=== PATIENT | female | born 1985 | race Caucasian/White ===

== ENCOUNTER 2023-01-27 17:37 | Emergency (ER) | payer SELFPAY ==
[2023-01-27 17:40] VITALS: BP 137/72; PULSE 90; RESP 15; TEMP 36.7; O2SAT 100; BMI 21.0
--- NOTE | 2023-01-27 17:42 | DI.RAD.S_ITS ---
PROCEDURE: XR CHEST 1V INDICATIONS: chest pain TECHNIQUE: One view of the chest was acquired. COMPARISON: None. FINDINGS: Surgical changes and devices: None. Lungs and pleura: Lungs are clear. No pleural effusions or pneumothorax. Mediastinum: Mediastinal contours appear normal. Heart size is normal. Bones and chest wall: No suspicious bony lesions. Overlying soft tissues appear unremarkable. IMPRESSION: No acute process. Dictated by: Gloria Huffman M.D. on 01/27/2023 at 17:57 Approved by: Gloria Huffman M.D. on 01/27/2023 at 17:57
[2023-01-27 17:50] VITALS: O2SAT 99
[2023-01-27 17:51] VITALS: BP 138/82; PULSE 87; O2SAT 99
[2023-01-27] MEDS: ASPIRIN 81 MG CHEW TAB 324 MG PO (17:55)
[2023-01-27 17:56] LABS: Add Manual Diff / Slide Review NO; Basophils Absolute Auto 0 /uL (0-100); Basophils Percent Auto 0.4 % (0-2); Eosinophils Absolute Auto 100 /uL (0-450); Eosinophils Percent Auto 0.8 % (2-4); Hematocrit 35.9 % (36-46); Hemoglobin 12.1 g/dL (12.0-16.0); Lymphocytes Absolute Auto 1700 /uL (1100-4500); Lymphocytes Percent Auto 22.6 % (25-40); Mean Corpuscular HGB Conc 33.9 % (30-36); Mean Corpuscular Volume 88.7 fL (80-100); Monocytes Absolute Auto 600 /uL (0-900); Monocytes Percent Auto 7.1 % (3-14); Neutrophils Absolute Auto 5300 /uL (1500-7000); Neutrophils Percent Auto 69.1 % (50-75); Platelet Count 391 X10^3/uL (150-400); Red Blood Cell Count 4.04 X10^6/uL (4.0-5.2); Red Cell Distribution Width 13.6 % (11.6-14.8); White Blood Cell Count 7.7 X10^3/uL (4.5-11.0)
[2023-01-27 18:00] VITALS: PULSE 67; RESP 15; O2SAT 98
[2023-01-27 18:03] LABS: Prothrombin Time 11.7 SECONDS (10.1-12.7)
[2023-01-27 18:06] LABS: PTT Partial Thromboplastin Tim 31 SECONDS (26-36)
[2023-01-27 18:23] LABS: Alanine Aminotransferase 26 IU/L (<35); Albumin 4.6 g/dL (3.5-5.0); Albumin Globulin Ratio 1.4 (1.0-2.8); Alkaline Phosphatase 52 U/L (38-126); Aspartate Aminotransferase 30 IU/L (14-36); BUN Creatinine Ratio 18.6 (6-22); Bilirubin Total 0.3 mg/dL (0.2-1.3); Blood Urea Nitrogen 16 mg/dL (7-17); Calcium 9.4 mg/dL (8.4-10.2); Carbon Dioxide 28 mmol/L (22-32); Chloride 102 mmol/L (98-107); Creatine Kinase 149 U/L (30-135); Estimated Glomerular Filt Rate > 60 mL/min (>60); Globulin 3.4 g/dL (1.7-4.1); Glucose 86 mg/dL (70-100); HEMOLYSIS < 15 (0-50); Lipase 183 U/L (23-300); Potassium 3.8 mmol/L (3.4-5.1); Sodium 139 mmol/L (137-145)
[2023-01-27 18:30] VITALS: PULSE 64; RESP 13; O2SAT 98
[2023-01-27 18:34] LABS: Troponin I < 0.012 ng/mL (0.01-0.034)
--- NOTE | 2023-01-27 18:49 | ED_ITS ---
HPI - Chest Pain General Chief Complaint: Chest Pain Stated Complaint: chest pain Time Seen by Provider: 01/27/23 18:01 Source: patient Mode of arrival: Ambulatory Limitations: no limitations History of Present Illness HPI narrative: Patient is a 37-year-old female who is here for evaluation of chest discomfort. She states it started earlier today. It has been somewhat consistent since the onset however there have been times that has been worse than others. No cough. No fevers. No radiation. No nausea or vomiting. No lower extremity swelling. Has never had anything like this in the past. Related Data Home Medications Medication Instructions Recorded Confirmed sertraline 50 mg tablet 50 mg PO DAILY 02/17/22 02/17/22 Allergies Allergy/AdvReac Type Severity Reaction Status Date / Time Sulfa (Sulfonamide Allergy Mild Unknown Verified 01/27/23 17:40 Antibiotics) Review of Systems Constitutional Constitutional: Reports system reviewed and no additional complaints, except as documented Cardiovascular Cardiovascular: Reports system reviewed and no additional complaints, except as documented Respiratory Respiratory: Reports system reviewed and no additional complaints, except as documented Gastrointestinal Gastrointestinal: Reports system reviewed and no additional complaints, except as documented Integumentary/Breasts Skin/Breast: Reports system reviewed and no additional complaints, except as documented Hematologic/Lymphatic On Anticoagulants: No Patient History Social History Smoking Status: Never smoker Smoking Status: Never smoker alcohol intake frequency: holidays/special occasions only Substance Use Type: does not use Exam Initial Vital Signs Initial Vital Signs: Vital Signs Temperature 98.1 F 01/27/23 17:40 Pulse Rate 90 01/27/23 17:40 Respiratory Rate 15 01/27/23 17:40 Blood Pressure 137/72 01/27/23 17:40 Pulse Oximetry 100 01/27/23 17:40 Oxygen Delivery Method Room Air 01/27/23 17:40 HENWI Head: normal to inspection and normocephalic Resp Effort & Inspection: normal respiratory effort Auscultation: clear to auscultation bilaterally Cardio Rate: regular rate Rhythm: regular rhythm GI Inspection: normal to inspection and non-distended Skin General: no rashes or lesions noted Neuro General: patient alert, patient awake and moves all extremities Extrem General: normal to inspection Scores HEART Score Heart Score history: Slightly Suspicious Heart Score EKG: Normal Heart Score Age: < 45 years old Heart Score risk factors: No known risk factors Heart Score troponin: < or = to normal limit Heart Score Total: 0 Course Orders Ordered: ED Orders 01/27/23 17:42 XR chest 1V Stat 01/27/23 17:43 Complete Blood Count AUTO DIFF Stat Comprehensive Metabolic Panel Stat Lipase Stat Magnesium Stat PTT Partial Thromboplastin Bob Stat Prothrombin Time INR Stat Troponin & CK Cardiac Panel Stat 01/27/23 17:55 EKG-12 Lead Stat Discontinued Medications Aspirin (Aspirin 81 Mg Chew Tab) 324 mg PO NOW ONE Stop: 01/27/23 17:43 Last Admin: 01/27/23 17:55 Dose: 324 mg Documented By: STEVIE Vital Signs Vital signs: Vital Signs - 8 hr 01/27/23 17:40 01/27/23 17:50 01/27/23 17:51 Temperature 98.1 F Pulse Rate 90 Respiratory Rate 15 Blood Pressure 137/72 138/82 Pulse Oximetry 100 99 Oxygen Delivery Method Room Air 01/27/23 17:51 01/27/23 18:00 01/27/23 18:30 Temperature Pulse Rate 87 67 64 Respiratory Rate 15 13 Blood Pressure Pulse Oximetry 99 98 98 Oxygen Delivery Method MDM - Chest Pain Lab Data Attestation: I reviewed the patient's lab results. 01/27/23 17:43 01/27/23 17:43 Labs: Lab Results 01/27/23 01/27/23 01/27/23 Range/Units 17:43 17:43 17:43 WBC 7.7 (4.5-11.0) X10^3/uL RBC 4.04 (4.0-5.2) X10^6/uL Hgb 12.1 (12.0-16.0) g/dL Hct 35.9 L (36-46) % MCV 88.7 (80-100) fL MCH 30.0 (26-34) PG MCHC 33.9 (30-36) % RDW 13.6 (11.6-14.8) % Plt Count 391 (150-400) X10^3/uL Neut % (Auto) 69.1 (50-75) % Lymph % (Auto) 22.6 L (25-40) % [place] % (Auto) 7.1 (3-14) % Eos % (Auto) 0.8 L (2-4) % Baso % (Auto) 0.4 (0-2) % Neut # (Auto) 5300 (4537-7433) /uL Lymph # (Auto) 1700 (6942-6978) /uL [place] # (Auto) 600 (0-900) /uL Eos # (Auto) 100 (0-450) /uL Baso # (Auto) 0 (0-100) /uL PT 11.7 (10.1-12.7) SECONDS INR 1.0 (0.9-1.3) APTT 31 (26-36) SECONDS Sodium 139 (137-145) mmol/L Potassium 3.8 (3.4-5.1) mmol/L Chloride 102 (98-107) mmol/L Carbon Dioxide 28 (22-32) mmol/L BUN 16 (7-17) mg/dL Creatinine 0.86 (0.52-1.04) mg/dL Estimated GFR > 60 (>60) mL/min BUN/Creatinine Ratio 18.6 (6-22) Glucose 86 (70-100) mg/dL Calcium 9.4 (8.4-10.2) mg/dL Magnesium 2.0 (1.6-2.3) mg/dL Total Bilirubin 0.3 (0.2-1.3) mg/dL AST 30 (14-36) IU/L ALT 26 (<35) IU/L Alkaline Phosphatase 52 (38-126) U/L Total Creatine Kinase 149 H (30-135) U/L CK-MB (CK-2) TNP CK-MB (CK-2) Rel Index TNP Troponin I < 0.012 (0.01-0.034) ng/mL Total Protein 8.0 (6.3-8.2) g/dL Albumin 4.6 (3.5-5.0) g/dL Globulin 3.4 (1.7-4.1) g/dL Albumin/Globulin Ratio 1.4 (1.0-2.8) Lipase 183 (23-300) U/L Imaging Data Chest x-ray: Radiologist's Impression: PROCEDURE:? XR CHEST 1V ? INDICATIONS:? chest pain ? TECHNIQUE:? One view of the chest was acquired.? ? COMPARISON:? None. ? FINDINGS:? ? Surgical changes and devices:? None.? ? Lungs and pleura:? Lungs are clear.? No pleural effusions or pneumothorax.? ? Mediastinum:? Mediastinal contours appear normal.? Heart size is normal.? ? Bones and chest wall:? No suspicious bony lesions.? Overlying soft tissues appear unremarkable.? ? IMPRESSION:? No acute process. ECG Data Attestation: I personally reviewed and interpreted this ECG as follows: Interpretation: Sinus rhythm Ventricular rate is 71 Sinus arrhythmia Normal QRS Normal QTC No ST T wave changes MDM Narrative Medical decision making narrative: Workup here in the emergency department is very reassuring and I have low suspicion for ACS. Chest x-ray shows no signs of pneumonia. She is a benign exam. Low risk heart score. No further workup required in the emergency department. Patient understands the lack of a definitive diagnosis. Will have her contact her primary doctor for follow-up. She was given return precautions. She expressed understanding and agreement. Discharge Plan Departure Patient Disposition: Home Clinical Impression: Atypical chest pain Instructions: DI for Atypical Chest Pain Activity Restrictions/Additional Instructions: Your workup here in the emergency department is very reassuring. I recommend that you continue to take all of your medications as directed. Contact your [facility] doctor for a follow-up. Return to the emergency department for new or worsening symptoms. Prescriptions: No Action sertraline 50 mg tablet 50 mg PO DAILY Stand Alone Forms: Patient Portal/API
== END 2023-01-27 18:59 | disposition home or self-care (01) ==
PROVIDERS: Emergency Medicine; Emergency Provider Emergency Medicine
DX: R07.89 Other chest pain (principal)
CPT/HCPCS: 36415; 71045; 80053; 82550; 83690; 83735; 84484; 85025; 85610; 85730; 93005; 99284

== ENCOUNTER 2023-02-05 21:30 | Emergency (ER) | payer SELFPAY ==
[2023-02-05 22:02] VITALS: BP 132/71; PULSE 68; RESP 18; TEMP 37.1; O2SAT 99; BMI 21.0
--- NOTE | 2023-02-05 23:53 | ED_ITS ---
HPI - Dental/Oral General Chief complaint: Dental/Oral Stated complaint: Abscess tooth right side Time Seen by Provider: 02/05/23 23:53 Source: patient Mode of arrival: Ambulatory History of Present Illness HPI Narrative: Patient is a 37-year-old healthy female presenting today with right-sided dental pain. She says it came on suddenly got diaphoretic throbbing pain 06/24. Her face is slightly swollen. She denies any fever. She has had dental pain previously but on the left side. Able to open mouth without any difficulty. Teeth map: 1. Chronic dental issues no dental abscess no gum swelling Related Data Home Medications Medication Instructions Recorded Confirmed sertraline 50 mg tablet 50 mg PO DAILY 02/17/22 02/17/22 Previous Rx's Medication Instructions Recorded amoxicillin 500 mg capsule 500 mg PO BID #14 caps 02/06/23 Allergies Allergy/AdvReac Type Severity Reaction Status Date / Time Sulfa (Sulfonamide Allergy Mild Unknown Verified 02/05/23 22:07 Antibiotics) Review of Systems Review of Systems ROS Unobtainable: All systems reviewed & are unremarkable except as noted in HPI and below Patient History Social History Smoking Status: Never smoker Smoking Status: Never smoker alcohol intake frequency: holidays/special occasions only Substance Use Type: does not use Exam Initial Vital Signs Initial Vital Signs: Vital Signs Temperature 98.7 F 02/05/23 22:02 Pulse Rate 68 02/05/23 22:02 Respiratory Rate 18 02/05/23 22:02 Blood Pressure 132/71 02/05/23 22:02 Pulse Oximetry 99 02/05/23 22:02 Oxygen Delivery Method Room Air 02/05/23 22:02 GENERAL: Well-appearing, well-nourished and in no acute distress. HEENT: See dental map mild right-sided facial swelling no significant erythema trismus CARDIOVASCULAR: peripheral pulses in tact, cap refill <2 sec RESPIRATORY: No respiratory distress, speaks in full sentences without difficulty EXTREMITIES: Normal range of motion, no clubbing or edema. Neurovascularly intact NEUROLOGICAL: Cranial nerves II through XII grossly intact. Normal gait and speech. SKIN: Warm, dry, no petechiae, no rashes or lesions. Course Orders Ordered: Discontinued Medications Hydrocodone Bitart/Acetaminophen (Hydrocodone/Acet 5/325 Prepack) 1 bottle MISC SEEINSTR ONE Stop: 02/06/23 00:00 Last Admin: 02/06/23 00:06 Dose: 1 bottle Documented By: BELKIS Amoxicillin (Amoxicillin 250 Mg Prepack) 1 bottle MISC SEEINSTR ONE Stop: 02/06/23 00:00 Last Admin: 02/06/23 00:06 Dose: 1 bottle Documented By: BELKIS Vital Signs Vital signs: Vital Signs - 8 hr 02/05/23 22:02 02/06/23 00:13 Temperature 98.7 F Pulse Rate 68 72 Respiratory Rate 18 18 Blood Pressure 132/71 161/67 H Pulse Oximetry 99 97 Oxygen Delivery Method Room Air Room Air MDM - Dental/Oral MDM Narrative Medical decision making narrative: Patient healthy 37-year-old female who does have some chronic ongoing dental issues having a right-sided dental pain with mild facial swelling. No dental abscess she is afebrile. Offered to do a dental block however she said last time it did not work and she is hesitant to do it again. He is given amoxicillin and only a couple doses of hydrocodone. No need for any further workup or intervention Discharge Plan Departure Patient Disposition: Home Clinical Impression: Toothache Instructions: DI for Dental Pain Activity Restrictions/Additional Instructions: *You have been diagnosed with dental pain *What to do: At this time you will need to follow-up with a dentist. *Continue to take medications as directed Motrin 600 mg every 6 hours if needed for obss-kh-kxwohsgh pain [place] 1 tablet every 6 hours if needed for severe pain Amoxicillin 500 mg twice a day for 7 days--> SENT TO [facility] *Follow up with your primary care provider in 2-3 days or call [phone] *Return to ER if you should have increasing pain swelling redness or any new, worsening or concerning symptoms Prescriptions: New amoxicillin 500 mg capsule 500 mg PO BID Qty: 14 0RF No Action sertraline 50 mg tablet 50 mg PO DAILY Stand Alone Forms: Patient Portal/API
[2023-02-06] MEDS: HYDROCODONE/ACET 5/325 PREPACK 1 BOTTLE MISC (00:06)
[2023-02-06] MEDS: AMOXICILLIN 250 MG PREPACK 1 BOTTLE MISC (00:06)
[2023-02-06 00:13] VITALS: BP 161/67; PULSE 72; RESP 18; O2SAT 97
== END 2023-02-06 00:16 | disposition home or self-care (01) ==
PROVIDERS: Emergency Provider Emergency Medicine
DX: K08.89 Other specified disorders of teeth and supporting structures (principal)
CPT/HCPCS: 99281; 99283

== ENCOUNTER 2023-08-27 17:42 | Emergency (ER) | payer OTHER, MEDICAID, SELFPAY ==
[2023-08-27 17:45] VITALS: BP 141/81; PULSE 94; RESP 16; TEMP 36.6; O2SAT 98; BMI 22.6
--- NOTE | 2023-08-27 19:16 | ED_ITS ---
HPI - Dental/Oral <Malgorzata Barba PA-C - Last Filed: 08/27/23 19:21> General Chief complaint: Dental/Oral Stated complaint: tooth pain Time Seen by Provider: 08/27/23 18:28 Source: patient Mode of arrival: Family Vehicle History of Present Illness HPI Narrative: Patient is a 37-year-old female who presents with 24 hours of dental pain. She reports a history of having a cracked tooth in the left lower jaw, states she saw her dentist at [facility] for this who stated there was nothing that needed to be done urgently. Since last night, she has had significant pain in this area and despite taking Tylenol and ibuprofen, has been unable to rest. She has been applying heat with some relief. It is a holiday weekend and she will not be able to get in to see anyone to at least to stay. She denies fever, difficulty swallowing. She endorses pain that shoots up into her ear, pain if her teeth touch, pain with chewing. Pain is currently 8/10. Related Data Home Medications Medication Instructions Recorded Confirmed sertraline 50 mg tablet 50 mg PO DAILY 02/17/22 02/23/23 Previous Rx's Medication Instructions Recorded amoxicillin 875 mg-potassium 1 tab PO BID #14 tabs 08/27/23 clavulanate 125 mg tablet oxycodone 5 mg tablet 5 mg PO TID PRN pain #14 tabs 08/27/23 Allergies Allergy/AdvReac Type Severity Reaction Status Date / Time Sulfa (Sulfonamide Allergy Mild Unknown Verified 08/27/23 17:51 Antibiotics) Review of Systems <Malgorzata Barba PA-C - Last Filed: 08/27/23 19:21> Review of Systems ROS Unobtainable: All systems reviewed & are unremarkable except as noted in HPI and below Patient History <Malgorzata Barba PA-C - Last Filed: 08/27/23 19:21> Social History Smoking Status: Never smoker Smoking Status: Never smoker alcohol intake frequency: holidays/special occasions only Substance Use Type: does not use Exam <Malgorzata Barba PA-C - Last Filed: 08/27/23 19:21> Narrative Exam Narrative: GENERAL: 37 year old patient appears stated age. Well-developed patient, in moderate distress. NEURO: AOx3. HEAD: Atraumatic. Normocephalic. EYES: Pupils equal round and reactive. Extraocular motions intact. No scleral icterus. No injection or drainage. ENT: Nose without bleeding or purulent drainage. Throat without erythema, tonsillar hypertrophy or exudate. Airway patent. Mild edema and erythema around the left lower molars. No obvious deformity of the tooth. No fluctuant pocket identified. No mastoid tenderness, swelling of the ear. Mild anterior cervical lymphadenopathy and tenderness on the left. NECK: Trachea midline. RESPIRATORY: No distress or increased work of breathing EXTREMITIES: No edema or joint tenderness. SKIN: No rash or erythema of visible areas Initial Vital Signs Initial Vital Signs: Vital Signs Temperature 97.8 F 08/27/23 17:45 Pulse Rate 94 H 08/27/23 17:45 Respiratory Rate 16 08/27/23 17:45 Blood Pressure 141/81 H 08/27/23 17:45 Pulse Oximetry 98 08/27/23 17:45 Oxygen Delivery Method Room Air 08/27/23 17:45 <DO Mark Quintana Last Filed: 08/27/23 19:31> Initial Vital Signs Initial Vital Signs: Vital Signs Temperature 97.8 F 08/27/23 17:45 Pulse Rate 94 H 08/27/23 17:45 Respiratory Rate 16 08/27/23 17:45 Blood Pressure 141/81 H 08/27/23 17:45 Pulse Oximetry 98 08/27/23 17:45 Oxygen Delivery Method Room Air 08/27/23 17:45 Course <SUKH Daley Last Filed: 08/27/23 19:21> Vital Signs Vital signs: Vital Signs - 8 hr 08/27/23 17:45 Temperature 97.8 F Pulse Rate 94 H Respiratory Rate 16 Blood Pressure 141/81 H Pulse Oximetry 98 Oxygen Delivery Method Room Air <DO Mark Quintana Last Filed: 08/27/23 19:31> Vital Signs Vital signs: Vital Signs - 8 hr 08/27/23 17:45 Temperature 97.8 F Pulse Rate 94 H Respiratory Rate 16 Blood Pressure 141/81 H Pulse Oximetry 98 Oxygen Delivery Method Room Air MDM - Dental/Oral <Malgorzata Barba PA-C - Last Filed: 08/27/23 19:21> MDM Narrative Medical decision making narrative: Multiple etiologies for patient's symptoms considered including, but not limited to: Dental pain secondary to a cracked tooth, dental abscess. No evidence of mastoiditis, cellulitis, infection of the neck space. No visible drainable abscess. Discussed management with the patient to include antibiotics to treat suspected infection and pain medications. Continue to take ibuprofen and we will prescribe oxycodone as needed severe pain. Provided education to the patient regarding safe use of oxycodone. Advised her to call 1st thing on Tuesday morning after the holiday weekend to be seen by a dentist. She can also try calling her dentist to see if they have an emergency care line/on-call dentist. Reviewed strict return precautions. Patient states understanding of the instructions. Patient's symptoms improved over duration of stay with above-stated therapies. Findings and discharge diagnosis discussed with patient/family followed by verbalization of understanding Return precautions discussed with patient/family whom verbalize understanding of diagnosis and plan Discharge Plan Departure Patient Disposition: Home Clinical Impression: Dental abscess, Toothache Instructions: Tooth Abscess, DI for Dental Pain Activity Restrictions/Additional Instructions: *You have been diagnosed with dental abscess and tooth pain. As we discussed, I will prescribe antibiotics and pain medicine. I would suggest continuing to take ibuprofen 600 mg every 6 hours for pain and anti inflammatory effect. You can also use the oxycodone pain medicine as needed for severe pain. Continue to use heat for comfort. You should call your dentist 1st thing in the morning on Tuesday and schedule an appointment. If your dentist is not able to see you on Tuesday, I would advise calling around to other dentists in the area she get seen as soon as possible. If you develop any difficulty swallowing, severe swelling of your face or your ear, or other concerning symptoms, please return to the emergency department. I do not expect these to happen but if you do notice them, you should be reassessed. You have been prescribed a short course of narcotic medications. These are potentially dangerous and addictive medications that should be used carefully. While on these medications you cannot drive or operate heavy machinery. Do not drink alcohol or use other sedative medications while you are taking this medication. Additionally, you cannot sign legal documents or perform any duties such as this. 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 Please understand that we cannot provide further refills of narcotics or controlled substances through the ED and your pain management will need to be through your Primary Care Provider. *What to do: *Please continue to take your regular medications as directed. [x] New medication prescriptions sent to your pharmacy: [facility] [ ] New medication written as a paper prescription [ ] No new medications given *Please follow up with your primary care provider in 2-3 days, call for an appointment. Let them know you were seen in the Emergency Department and that we ask that you be seen in follow up. We will electronically transmit a record of today's note if your PCP is in our system *If you do not have a primary care provider please contact the [facility] Resource line at [phone]. They will ask some questions about your medical history and help get you set up with a doctor in the community. *Return to Emergency Department if you should have any new, worsening or concerning symptoms, such as [fever greater than 101 F, shaking chills, worsening pain, persistent vomiting or other concerning symptoms]. Prescriptions: New amoxicillin-pot clavulanate 875-125 mg tablet 1 tab PO BID Qty: 14 0RF oxycodone 5 mg tablet 5 mg PO TID PRN (Reason: pain) Qty: 14 0RF Discontinued amoxicillin 500 mg capsule 500 mg PO BID Qty: 14 0RF No Action sertraline 50 mg tablet 50 mg PO DAILY Referrals: Miscellaneous,Doctor, [Primary Care Provider] - Stand Alone Forms: Patient Portal/API ED Sign-out <Serenity Matthew DO - Last Filed: 08/27/23 19:31> Cosign ED Attending Cristobal Attestation: I was immediately available in the department for consultation.
== END 2023-08-27 18:35 | disposition home or self-care (01) ==
PROVIDERS: Emergency Provider Physician Assistant
DX: K04.7 Periapical abscess without sinus (principal); K08.89 Other specified disorders of teeth and supporting structures
CPT/HCPCS: 99281

== ENCOUNTER 2024-01-01 05:21 | Emergency (ER) | payer SELFPAY ==
[2024-01-01 05:24] VITALS: BP 134/76; PULSE 86; RESP 18; TEMP 36.8; O2SAT 98; BMI 21.9
--- NOTE | 2024-01-01 06:31 | ED.DENTAL ---
HPI - Dental/Oral General Chief complaint: Dental/Oral Stated complaint: dental pain Time Seen by Provider: 01/01/24 06:31 Source: patient Mode of arrival: Ambulatory History of Present Illness HPI Narrative: 38-year-old female has dental caries, cracked tooth right upper, awaiting follow up dental appointment for possible extraction or other treatment, worse pain since yesterday, no new chewing or activities that brought about the symptoms. No swelling of the left face. No known drug allergies, she has responded to amoxicillin in the past Related Data Home Medications Medication Instructions Recorded Confirmed sertraline 50 mg tablet 50 mg PO DAILY 02/17/22 02/23/23 Previous Rx's Medication Instructions Recorded amoxicillin 875 mg-potassium 1 tab PO BID #14 tabs 08/27/23 clavulanate 125 mg tablet oxycodone 5 mg tablet 5 mg PO TID PRN pain #14 tabs 08/27/23 oxycodone 5 mg tablet 5 mg PO TID PRN pain #14 tabs 08/28/23 amoxicillin 875 mg tablet 875 mg PO BID dental infection 7 01/01/24 days #14 tabs Allergies Allergy/AdvReac Type Severity Reaction Status Date / Time Sulfa (Sulfonamide Allergy Mild Unknown Verified 08/27/23 17:51 Antibiotics) Review of Systems Review of Systems ROS Unobtainable: All systems reviewed & are unremarkable except as noted in HPI and below Patient History Social History Smoking Status: Never smoker Smoking Status: Never smoker alcohol intake frequency: holidays/special occasions only Substance Use Type: does not use Exam Narrative Exam Narrative: GENERAL: Well-developed patient, in mild distress. HEAD: Atraumatic. Normocephalic. EYES: Pupils equal round and reactive. Extraocular motions intact. No scleral icterus. No injection or drainage. ENT: Nose without bleeding, purulent drainage. Throat without erythema, tonsillar hypertrophy or exudate. Airway patent. NECK: Trachea midline. Non tender CARDIOVASCULAR: Regular rate and rhythm without murmurs, gallops, or rubs. RESPIRATORY: Clear to auscultation. Breath sounds equal bilaterally. No wheezes, rales, or rhonchi. GASTROINTESTINAL: Abdomen soft, non-tender, nondistended. EXTREMITIES: No edema or joint tenderness. BACK: Nontender without deformity or crepitance. No flank tenderness. NEURO: AOx3. SKIN: No rash or erythema of visible areas Initial Vital Signs Initial Vital Signs: Vital Signs Temperature 98.3 F 01/01/24 05:24 Pulse Rate 86 01/01/24 05:24 Respiratory Rate 18 01/01/24 05:24 Blood Pressure 134/76 01/01/24 05:24 Pulse Oximetry 98 01/01/24 05:24 Oxygen Delivery Method Room Air 01/01/24 05:24 Course Orders Ordered: Discontinued Medications Amoxicillin (Amoxicillin 250 Mg Capsule) 1,000 mg PO NOW ONE Stop: 01/01/24 06:40 Last Admin: 01/01/24 06:51 Dose: 1,000 mg Documented By: ARMAND Tramadol HCl (Tramadol 50 Mg Prepack) 1 bottle MISC DIRECTED ONE Stop: 01/01/24 06:51 Last Admin: 01/01/24 06:52 Dose: 1 bottle Documented By: ARMAND Vital Signs Vital signs: Vital Signs - 8 hr 01/01/24 05:24 01/01/24 06:52 Temperature 98.3 F 97.9 F Pulse Rate 86 79 Respiratory Rate 18 16 Blood Pressure 134/76 124/82 Pulse Oximetry 98 98 Oxygen Delivery Method Room Air Room Air MDM - Dental/Oral MDM Narrative Medical decision making narrative: Right upper tooth pain, poor dentition, we will treat for presumed apical abscess, amoxicillin has helped in the past. Amoxicillin 1st dose now, prescription for 7 day course. Encouraged to follow up with dental clinic for definitive treatment. Encouraged to use [id number] ibuprofen for pain control. Return precautions discussed Patient requesting something stronger than ibuprofen for pain control, previous prescriptions for oxycodone. I do not feel comfortable prescribing oxycodone this time for her current dental pain/findings, home pack tramadol without further opiate prescription for now. Continue use of ibuprofen encouraged Discharge Plan Departure Patient Disposition: Home Clinical Impression: Dental caries, Dental abscess Instructions: Tooth Decay, Tooth Abscess, DI for Dental Pain, Tooth Fracture Activity Restrictions/Additional Instructions: Poor dentition, increasing dental pain right upper premolar/molar tooth, awaiting dental consultation for definitive treatment, prior response to amoxicillin antibiotic. First dose antibiotic here, prescription for further amoxicillin 7 day course. Consider taking ibuprofen to help with your dental pain. Follow up with dentist, call office on Tuesday to see if an acute care visit is possible there. Return to the emergency department for any change worsening symptoms or any concerns Prescriptions: New amoxicillin 875 mg tablet 875 mg PO BID 7 Days Qty: 14 0RF No Action sertraline 50 mg tablet 50 mg PO DAILY amoxicillin-pot clavulanate 875-125 mg tablet 1 tab PO BID Qty: 14 0RF oxycodone 5 mg tablet 5 mg PO TID PRN (Reason: pain) Qty: 14 0RF oxycodone 5 mg tablet 5 mg PO TID PRN (Reason: pain) Qty: 14 0RF Referrals: Miscellaneous,Doctor, MD [Primary Care Provider] - Stand Alone Forms: Patient Portal/API
[2024-01-01] MEDS: AMOXICILLIN 250 MG CAPSULE 1000 MG PO (06:51)
[2024-01-01 06:52] VITALS: BP 124/82; PULSE 79; RESP 16; TEMP 36.6; O2SAT 98
[2024-01-01] MEDS: TRAMADOL 50 MG PREPACK 1 BOTTLE MISC (06:52)
--- NOTE | 2024-01-01 12:31 | PC.NURSE ---
Pt called stating the [facility] pharmacy never received her prescription. Clarified that prescription was transmitted and received by howie cortez. [facility] Ames notified and prescription called to [facility], [place] 875mg amoxicillin PO BID 7 days quantity 14. Call placed to [facility] to cancel prescription. Pt notified.
== END 2024-01-01 06:54 | disposition home or self-care (01) ==
PROVIDERS: Emergency Provider Emergency Medicine
DX: K04.7 Periapical abscess without sinus (principal); K02.9 Dental caries, unspecified
CPT/HCPCS: 99283

== ENCOUNTER 2024-02-25 17:02 | Emergency (ER) | payer MEDICAID, OTHER, SELFPAY ==
[2024-02-25] VITALS (11 sets, daily range): BP systolic 122–161; BP diastolic 66–89; PULSE 61–85; RESP 14–21; TEMP 36.6–37.3; O2SAT 96–698; BMI 21.2
--- NOTE | 2024-02-25 17:09 | DI.RAD.S_ITS ---
PROCEDURE: XR CHEST 1V INDICATIONS: Chest pain TECHNIQUE: One view of the chest was acquired. COMPARISON: [facility], CR, XR CHEST 1V, 01/27/2023, 17:40. FINDINGS: Surgical changes and devices: None. Lungs and pleura: Lungs are clear. No pleural effusions or pneumothorax. Mediastinum: Mediastinal contours appear normal. Heart size is normal. Bones and chest wall: No suspicious bony lesions. Overlying soft tissues appear unremarkable. IMPRESSION: No acute cardiopulmonary abnormality is seen. Dictated by: Smooth Donahue M.D. on 02/25/2024 at 17:33 Approved by: Smooth Donahue M.D. on 02/25/2024 at 17:37
--- NOTE | 2024-02-25 17:14 | EKG_ITS ---
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
[2024-02-25 17:17] LABS: Add Manual Diff / Slide Review NO; Basophils Absolute Auto 0 /uL (0-100); Basophils Percent Auto 0.6 % (0-2); Eosinophils Absolute Auto 100 /uL (0-450); Eosinophils Percent Auto 1.2 % (2-4); Hematocrit 38.3 % (36-46); Hemoglobin 12.9 g/dL (12.0-16.0); Lymphocytes Absolute Auto 2200 /uL (1100-4500); Lymphocytes Percent Auto 30.1 % (25-40); Mean Corpuscular HGB Conc 33.7 % (30-36); Mean Corpuscular Hemoglobin 30.4 PG (26-34); Mean Corpuscular Volume 90.1 fL (80-100); Monocytes Absolute Auto 600 /uL (0-900); Monocytes Percent Auto 7.8 % (3-14); Neutrophils Absolute Auto 4400 /uL (1500-7000); Neutrophils Percent Auto 60.3 % (50-75); Platelet Count 399 X10^3/uL (150-400); Red Blood Cell Count 4.25 X10^6/uL (4.0-5.2); Red Cell Distribution Width 13.7 % (11.6-14.8); White Blood Cell Count 7.3 X10^3/uL (4.5-11.0)
[2024-02-25 17:29] LABS: Alanine Aminotransferase 26 IU/L (<35); Albumin 4.6 g/dL (3.5-5.0); Albumin Globulin Ratio 1.4 (1.0-2.8); Alkaline Phosphatase 56 U/L (38-126); Aspartate Aminotransferase 29 IU/L (14-36); BUN Creatinine Ratio 21.7 (6-22); Bilirubin Total 0.4 mg/dL (0.2-1.3); Blood Urea Nitrogen 13 mg/dL (7-17); Calcium 9.5 mg/dL (8.4-10.2); Carbon Dioxide 28 mmol/L (22-32); Chloride 105 mmol/L (98-107); Creatine Kinase 78 U/L (30-135); Estimated Glomerular Filt Rate > 60 mL/min (>60); Globulin 3.2 g/dL (1.7-4.1); Glucose 93 mg/dL (70-100); HEMOLYSIS < 15 (0-50); Lipase 108 U/L (23-300); Potassium 3.9 mmol/L (3.4-5.1); Sodium 137 mmol/L (137-145); Total Protein 7.8 g/dL (6.3-8.2)
[2024-02-25 17:41] LABS: Troponin I < 0.012 ng/mL (0.01-0.034)
--- NOTE | 2024-02-25 17:53 | ED.CHESTPAIN ---
HPI - Chest Pain <NELLIE Herman - Last Filed: 02/25/24 18:59> General Chief Complaint: Chest Pain Stated Complaint: Chest Pain Time Seen by Provider: 02/25/24 17:08 Source: patient and EMS Mode of arrival: EMS Limitations: no limitations History of Present Illness HPI narrative: 38-year-old female, never smoker, presents to the emergency department via EMS for chest pain. Patient states that she was lying in bed, reading a book, when she started experiencing some heartburn. Patient is sat up and went to take a warm bath, which typically works for her heartburn. Patient states that she started to have a left-sided a gripping pain that radiated up into her left shoulder causing her to feel nauseous and sweaty. Patient reports feeling tingling of her extremities. Patient does endorse that she has a bit more stress than usual, although believes the stress level is slowly dissipating. Patient contacted EMS and was given 1 nitroglycerin pill and aspirin en route. Patient reports that the symptoms have dissipated but not fully resolved. No previous history of cardiac issues or similar symptoms. Related Data Home Medications Medication Instructions Recorded Confirmed sertraline 50 mg tablet 50 mg PO DAILY 02/17/22 02/23/23 Previous Rx's Medication Instructions Recorded amoxicillin 875 mg-potassium 1 tab PO BID #14 tabs 08/27/23 clavulanate 125 mg tablet oxycodone 5 mg tablet 5 mg PO TID PRN pain #14 tabs 08/27/23 oxycodone 5 mg tablet 5 mg PO TID PRN pain #14 tabs 08/28/23 Allergies Allergy/AdvReac Type Severity Reaction Status Date / Time Sulfa (Sulfonamide Allergy Mild Unknown Verified 02/25/24 17:20 Antibiotics) Review of Systems <NELLIE Herman - Last Filed: 02/25/24 18:59> Review of Systems Narrative: Narrative: See HPI. GENERAL: Denies chills, fatigue, fever, sweats. HEENT: Denies sinus pain, ear pain, sore throat, difficulty swallowing, dizziness. RESPIRATORY: Denies dyspnea, cough, wheezing, sputum. CARDIOVASCULAR: Denies palpitations, edema. Endorses chest pain. GASTROINTESTINAL: Denies nausea, vomiting, abdominal pain, diarrhea, constipation. : Denies dysuria, frequency, incontinence, hematuria, urinary retention, flank pain. MSK: Denies weakness, joint pain, or bony pain. SKIN: Denies rash, skin lesions, or pruritis. NEUROLOGIC: Denies weakness, dizziness, headache, numbness, confusion. PSYCHIATRIC: No concerning psychosocial issues. Patient History <NELLIE Herman - Last Filed: 02/25/24 18:59> Social History Smoking Status: Never smoker Smoking Status: Never smoker alcohol intake frequency: holidays/special occasions only Substance Use Type: does not use Exam <NELLIE Herman - Last Filed: 02/25/24 18:59> Narrative Exam Narrative: Exam Narrative: GENERAL: This is a well-nourished, well-developed patient, in no acute distress. HEAD: Atraumatic. Normocephalic. EYES: Pupils equal round and reactive. Extraocular motions intact. No scleral icterus, injection or drainage. ENT: Nose without bleeding, purulent drainage. Throat without erythema, tonsillar hypertrophy or exudate. Uvula midline. Airway patent. TMs and canals clear. No sinus tenderness. NECK: Trachea midline. No JVD or lymphadenopathy. Nontender. CARDIOVASCULAR: Regular rate and rhythm without murmurs, peripheral pulses intact, cap refill <2 sec. RESPIRATORY: Breath sounds equal and clear bilaterally. No wheezes, rales, or rhonchi. No cough. No increased respiratory effort. No accessory muscle use. GASTROINTESTINAL: Abdomen soft, non-tender, nondistended without guarding or rebound. No suprapubic pain. MSK: Moves all extremities. Normal range of motion, no clubbing or edema. Neurovascularly intact. NEURO: A&O x 3. SKIN: Warm, dry, no rashes or lesions noted. Initial Vital Signs Initial Vital Signs: Vital Signs Temperature 99.1 F 02/25/24 17:00 Pulse Rate 73 02/25/24 17:00 Respiratory Rate 14 02/25/24 17:00 Blood Pressure 161/84 H 02/25/24 17:00 Pulse Oximetry 99 02/25/24 17:00 Oxygen Delivery Method Room Air 02/25/24 17:00 Reviewed <Serenity Farah MD - Last Filed: 02/26/24 04:31> Initial Vital Signs Initial Vital Signs: Vital Signs Temperature 99.1 F 02/25/24 17:00 Pulse Rate 73 02/25/24 17:00 Respiratory Rate 14 02/25/24 17:00 Blood Pressure 161/84 H 02/25/24 17:00 Pulse Oximetry 99 02/25/24 17:00 Oxygen Delivery Method Room Air 02/25/24 17:00 Course <NELLIE Herman - Last Filed: 02/25/24 18:59> Orders Ordered: ED Orders 02/25/24 17:05 Complete Blood Count AUTO DIFF Stat Comprehensive Metabolic Panel Stat Lipase Stat Troponin & CK Cardiac Panel Stat 02/25/24 17:09 XR chest 1V Stat 02/25/24 19:03 Troponin I Stat 02/25/24 19:05 EKG-12 Lead Stat Vital Signs Vital signs: Vital Signs - 8 hr 02/25/24 17:00 02/25/24 17:06 02/25/24 17:07 Temperature 99.1 F Pulse Rate 73 79 Respiratory Rate 14 Blood Pressure 161/84 H 161/84 H Pulse Oximetry 99 98 Oxygen Delivery Method Room Air 02/25/24 17:07 02/25/24 17:30 02/25/24 17:30 Temperature Pulse Rate 75 70 Respiratory Rate 15 Blood Pressure 123/66 Pulse Oximetry 98 97 Oxygen Delivery Method Room Air 02/25/24 18:00 02/25/24 18:00 02/25/24 18:29 Temperature Pulse Rate 61 64 Respiratory Rate 17 14 Blood Pressure 122/83 Pulse Oximetry 97 96 Oxygen Delivery Method 02/25/24 18:30 02/25/24 18:30 02/25/24 19:00 Temperature Pulse Rate 65 Respiratory Rate 16 Blood Pressure 127/76 139/84 Pulse Oximetry 97 Oxygen Delivery Method 02/25/24 19:00 02/25/24 19:16 Temperature Pulse Rate 64 65 Respiratory Rate 20 18 Blood Pressure 134/89 Pulse Oximetry 98 98 Oxygen Delivery Method Room Air Room Air <Serenity Farah MD - Last Filed: 02/26/24 04:31> Orders Ordered: ED Orders 02/25/24 17:05 Complete Blood Count AUTO DIFF Stat Comprehensive Metabolic Panel Stat Lipase Stat Troponin & CK Cardiac Panel Stat 02/25/24 17:09 XR chest 1V Stat 02/25/24 19:03 Troponin I Stat 02/25/24 19:05 EKG-12 Lead Stat Vital Signs Vital signs: Vital Signs - 8 hr 02/25/24 17:00 02/25/24 17:06 02/25/24 17:07 Temperature 99.1 F Pulse Rate 73 79 Respiratory Rate 14 Blood Pressure 161/84 H 161/84 H Pulse Oximetry 99 98 Oxygen Delivery Method Room Air 02/25/24 17:07 02/25/24 17:30 02/25/24 17:30 Temperature Pulse Rate 75 70 Respiratory Rate 15 Blood Pressure 123/66 Pulse Oximetry 98 97 Oxygen Delivery Method Room Air 02/25/24 18:00 02/25/24 18:00 02/25/24 18:29 Temperature Pulse Rate 61 64 Respiratory Rate 17 14 Blood Pressure 122/83 Pulse Oximetry 97 96 Oxygen Delivery Method 02/25/24 18:30 02/25/24 18:30 02/25/24 19:00 Temperature Pulse Rate 65 Respiratory Rate 16 Blood Pressure 127/76 139/84 Pulse Oximetry 97 Oxygen Delivery Method 02/25/24 19:00 02/25/24 19:16 Temperature Pulse Rate 64 65 Respiratory Rate 20 18 Blood Pressure 134/89 Pulse Oximetry 98 98 Oxygen Delivery Method Room Air Room Air MDM - Chest Pain <NELLIE Herman - Last Filed: 02/25/24 18:59> Differential Diagnosis Differential diagnosis: Likely atypical chest pain Lab Data 02/25/24 17:05 02/25/24 17:05 Labs: Lab Results 02/25/24 02/25/24 Range/Units 17:05 19:03 WBC 7.3 (4.5-11.0) X10^3/uL RBC 4.25 (4.0-5.2) X10^6/uL Hgb 12.9 (12.0-16.0) g/dL Hct 38.3 (36-46) % MCV 90.1 (80-100) fL MCH 30.4 (26-34) PG MCHC 33.7 (30-36) % RDW 13.7 (11.6-14.8) % Plt Count 399 (150-400) X10^3/uL Neut % (Auto) 60.3 (50-75) % Lymph % (Auto) 30.1 (25-40) % Woodruff % (Auto) 7.8 (3-14) % Eos % (Auto) 1.2 L (2-4) % Baso % (Auto) 0.6 (0-2) % Neut # (Auto) 4400 (0418-0371) /uL Lymph # (Auto) 2200 (2123-0947) /uL Woodruff # (Auto) 600 (0-900) /uL Eos # (Auto) 100 (0-450) /uL Baso # (Auto) 0 (0-100) /uL Sodium 137 (137-145) mmol/L Potassium 3.9 (3.4-5.1) mmol/L Chloride 105 (98-107) mmol/L Carbon Dioxide 28 (22-32) mmol/L BUN 13 (7-17) mg/dL Creatinine 0.60 (0.52-1.04) mg/dL Estimated GFR > 60 (>60) mL/min BUN/Creatinine Ratio 21.7 (6-22) Glucose 93 (70-100) mg/dL Calcium 9.5 (8.4-10.2) mg/dL Total Bilirubin 0.4 (0.2-1.3) mg/dL AST 29 (14-36) IU/L ALT 26 (<35) IU/L Alkaline Phosphatase 56 (38-126) U/L Total Creatine Kinase 78 (30-135) U/L Troponin I < 0.012 < 0.012 (0.01-0.034) ng/mL Total Protein 7.8 (6.3-8.2) g/dL Albumin 4.6 (3.5-5.0) g/dL Globulin 3.2 (1.7-4.1) g/dL Albumin/Globulin Ratio 1.4 (1.0-2.8) Lipase 108 (23-300) U/L Imaging Data Chest x-ray: Radiologist's Impression: [address] [address] XRay Report Signed Patient: Camelia Javier MR#: [id number] : 1985 Acct:[id number] Age/Sex: 38 / F Date of Service: 02/25/24 Loc: ED Accession Number: [id number] Procedure: XR chest 1V Ordering Provider: Dioni Lincoln D.O. PROCEDURE: XR CHEST 1V INDICATIONS: Chest pain TECHNIQUE: One view of the chest was acquired. COMPARISON: [facility], CR, XR CHEST 1V, 01/27/2023, 17:40. FINDINGS: Surgical changes and devices: None. Lungs and pleura: Lungs are clear. No pleural effusions or pneumothorax. Mediastinum: Mediastinal contours appear normal. Heart size is normal. Bones and chest wall: No suspicious bony lesions. Overlying soft tissues appear unremarkable. IMPRESSION: No acute cardiopulmonary abnormality is seen. Dictated by: Smooth Donahue M.D. on 02/25/2024 at 17:33 Approved by: Smooth Donahue M.D. on 02/25/2024 at 17:37 ECG Data Attestation: I personally reviewed and interpreted this ECG as follows: Interpretation: NSR with vent rate of 69 bpm. INDIO - 144 ms MDM Narrative Medical decision making narrative: 38-year-old female with chest pain. Assessment was inconclusive and not sure what is causing patient's chest pain. Chest x-ray was normal, EKG was normal, labs are non concerning. Will obtain a repeat Troponin at 2 hour césar. Patient is still experiencing mild chest discomfort -10/22. Discussed with patient that we may not find out exactly what is causing discomfort, but can rule out life-threatening conditions. Recommended patient stay well hydrated, watch her stress levels and follow up with her family doctor as a referral for a Holter monitor/Zio patch may be indicated. Will turn over care to Dr. Farah. <Serenity Farah MD - Last Filed: 02/26/24 04:31> Lab Data Labs: Lab Results 02/25/24 02/25/24 Range/Units 17:05 19:03 WBC 7.3 (4.5-11.0) X10^3/uL RBC 4.25 (4.0-5.2) X10^6/uL Hgb 12.9 (12.0-16.0) g/dL Hct 38.3 (36-46) % MCV 90.1 (80-100) fL MCH 30.4 (26-34) PG MCHC 33.7 (30-36) % RDW 13.7 (11.6-14.8) % Plt Count 399 (150-400) X10^3/uL Neut % (Auto) 60.3 (50-75) % Lymph % (Auto) 30.1 (25-40) % Woodruff % (Auto) 7.8 (3-14) % Eos % (Auto) 1.2 L (2-4) % Baso % (Auto) 0.6 (0-2) % Neut # (Auto) 4400 (4530-1534) /uL Lymph # (Auto) 2200 (2978-2959) /uL [place] # (Auto) 600 (0-900) /uL Eos # (Auto) 100 (0-450) /uL Baso # (Auto) 0 (0-100) /uL Sodium 137 (137-145) mmol/L Potassium 3.9 (3.4-5.1) mmol/L Chloride 105 (98-107) mmol/L Carbon Dioxide 28 (22-32) mmol/L BUN 13 (7-17) mg/dL Creatinine 0.60 (0.52-1.04) mg/dL Estimated GFR > 60 (>60) mL/min BUN/Creatinine Ratio 21.7 (6-22) Glucose 93 (70-100) mg/dL Calcium 9.5 (8.4-10.2) mg/dL Total Bilirubin 0.4 (0.2-1.3) mg/dL AST 29 (14-36) IU/L ALT 26 (<35) IU/L Alkaline Phosphatase 56 (38-126) U/L Total Creatine Kinase 78 (30-135) U/L Troponin I < 0.012 < 0.012 (0.01-0.034) ng/mL Total Protein 7.8 (6.3-8.2) g/dL Albumin 4.6 (3.5-5.0) g/dL Globulin 3.2 (1.7-4.1) g/dL Albumin/Globulin Ratio 1.4 (1.0-2.8) Lipase 108 (23-300) U/L [facility] Narrative Medical decision making narrative: 38-year-old female with chest pain. Assessment was inconclusive and not sure what is causing patient's chest pain. Chest x-ray was normal, EKG was normal, labs are non concerning. Will obtain a repeat Troponin at 2 hour césar. Patient is still experiencing mild chest discomfort -10/22. Discussed with patient that we may not find out exactly what is causing discomfort, but can rule out life-threatening conditions. Recommended patient stay well hydrated, watch her stress levels and follow up with her family doctor as a referral for a Holter monitor/Zio patch may be indicated. Will turn over care to Dr. Farah. Dr. Farah -troponins negative x2. Patient's chest pain resolved while in the emergency department. Patient relieved to hear the results of her labs and imaging as well as her EKG results. PCP follow up recommended Discharge Plan Departure Patient Disposition: Home Clinical Impression: Chest pain Instructions: DI for Atypical Chest Pain Activity Restrictions/Additional Instructions: Your laboratory work, EKG, x-ray imaging today were normal. I do not know the cause of your chest pain but it was not look to be a heart attack, pneumonia, or anything else that we will threaten her life. If you continued to have chest pains I recommend following up with the primary care doctor. Otherwise continue all activity is normal, no medication changes will be made today. Prescriptions: No Action sertraline 50 mg tablet 50 mg PO DAILY amoxicillin-pot clavulanate 875-125 mg tablet 1 tab PO BID Qty: 14 0RF oxycodone 5 mg tablet 5 mg PO TID PRN (Reason: pain) Qty: 14 0RF oxycodone 5 mg tablet 5 mg PO TID PRN (Reason: pain) Qty: 14 0RF Referrals: Miscellaneous,Doctor, [Primary Care Provider] - Stand Alone Forms: Patient Portal/API ED Sign-out <Serenity Farah MD - Last Filed: 02/26/24 04:31> Cosign ED Attending Cosmaribelature Attestation: I personally saw reviewed this patient. I agree with note and workup.
[2024-02-25 19:37] LABS: Troponin I < 0.012 ng/mL (0.01-0.034)
== END 2024-02-25 19:56 | disposition home or self-care (01) ==
PROVIDERS: Emergency Medicine; Emergency Provider Registered Nurse
DX: R07.9 Chest pain, unspecified (principal)
CPT/HCPCS: 71045; 80053; 82550; 83690; 84484; 85025; 99283; 99284

== ENCOUNTER 2024-04-18 18:15 | Emergency (ER) | payer SELFPAY ==
[2024-04-18 18:28] VITALS: BP 134/89; PULSE 83; RESP 17; TEMP 37.2; O2SAT 98; BMI 21.0
--- NOTE | 2024-04-18 21:19 | ED.EAR ---
HPI - Ear Problem General Chief complaint: Ear Stated complaint: Fever, Lethargy, Face feels swollen, L Ear Issue Time Seen by Provider: 04/18/24 20:26 Source: patient Mode of arrival: Ambulatory History of Present Illness HPI Narrative: 38yoF presents with 1 day of L ear pain. Reports oral temp 101F at home. Patient states she took Tylenol and ibuprofen without significant relief. Feels like the left side of her head is swollen. Related Data Home Medications Medication Instructions Recorded Confirmed sertraline 50 mg tablet 50 mg PO DAILY 02/17/22 04/18/24 Allergies Allergy/AdvReac Type Severity Reaction Status Date / Time Sulfa (Sulfonamide Allergy Mild Unknown Verified 04/18/24 18:30 Antibiotics) Patient History Social History Smoking Status: Never smoker Smoking Status: Never smoker alcohol intake frequency: holidays/special occasions only Substance Use Type: does not use Exam Initial Vital Signs Initial Vital Signs: Vital Signs Temperature 99 F 04/18/24 18:28 Pulse Rate 83 04/18/24 18:28 Respiratory Rate 17 04/18/24 18:28 Blood Pressure 134/89 04/18/24 18:28 Pulse Oximetry 98 04/18/24 18:28 Oxygen Delivery Method Room Air 04/18/24 18:28 Const: Awake, alert, no acute distress, nontoxic appearing HEENT: Right ear unremarkable, left auricular tenderness with manipulation, no mastoid tenderness, canal edema of left ear Skin: Warm, Dry, intact, no rashes Neuro: AO x3, CN II-XII grossly intact, moves all extremities Course Orders Ordered: Discontinued Medications Hydrocodone Bitart/Acetaminophen (Hydrocodone/Acet 5/325 Prepack) 1 bottle MISC DIRECTED ONE Stop: 04/18/24 21:20 Last Admin: 04/18/24 21:40 Dose: 1 bottle Documented By: MARTHA Ciprofloxacin/Dexamethasone (Ciprofloxacin/Dexameth Otic Susp) 4 drops EAR-LEFT NOW ONE Stop: 04/18/24 21:20 Last Admin: 04/18/24 21:39 Dose: 4 drop Documented By: MARTHA Vital Signs Vital signs: Vital Signs - 8 hr 04/18/24 21:39 Pulse Rate 84 Respiratory Rate 18 Blood Pressure 121/74 Pulse Oximetry 98 Oxygen Delivery Method Room Air Medical Decision Making MDM Narrative Additional Information: Findings consistent with acute otitis externa. Ear wick placed and Ciprodex drops applied. Bottle sent with the patient for home use. Short course of pain medication given to patient, she was also counseled to continue to take Tylenol and ibuprofen as needed for symptoms. Discharge Plan Departure Patient Disposition: Home Clinical Impression: Otitis externa Instructions: DI for Otitis Externa Activity Restrictions/Additional Instructions: Your exam shows that you have otitis externa, or an external ear infection. The ear wick we will help to deliver antibiotics throughout your ear canal. Use the Ciprodex drops as instructed: * 4 drops 2 times daily for 7-10 days. You may take the ear wick out after 48 hours. Prescriptions: No Action sertraline 50 mg tablet 50 mg PO DAILY Referrals: Miscellaneous,DoctorMD [Primary Care Provider] - Stand Alone Forms: Patient Portal/API
[2024-04-18 21:39] VITALS: BP 121/74; PULSE 84; RESP 18; O2SAT 98
[2024-04-18] MEDS: CIPROFLOXACIN/DEXAMETH OTIC SUSP 4 DROPS EAR-LEFT (21:39)
[2024-04-18] MEDS: HYDROCODONE/ACET 5/325 PREPACK 1 BOTTLE MISC (21:40)
== END 2024-04-18 21:47 | disposition home or self-care (01) ==
PROVIDERS: Emergency Provider Emergency Medicine
DX: H60.92 Unspecified otitis externa, left ear (principal)
CPT/HCPCS: 99282; 99283